=== PATIENT | male | born 2000 | race Two or more races ===

== ENCOUNTER 2022-08-14 07:28 | Inpatient (IN) | payer BC ==
[2022-08-14 07:51] VITALS: BMI 21.1
[2022-08-14] MEDS ORDERED: ACETAMINOPHEN 1000 MG/100 ML BAG IVPB ONE (08:46)
[2022-08-14] MEDS ORDERED: DIPHTH,PERTUSS(ACELL),TET 0.5 ML DISP.SYRIN IM ONE ×2 (08:47→08:50)
[2022-08-14] MEDS ORDERED: ACETAMINOPHEN INJECTION 100 ML IVPB ONE (08:50)
[2022-08-14 09:41] LABS: BASO % 0.2 % (0-2.0); EOS % 0.1 % (0-4.5); HEMATOCRIT 45.4 % (35.4-49); HEMOGLOBIN 15.3 GM/dL (11.7-16.9); LYMPH % 5.9 % (8-40); MCH 30.1 pg (25.7-33.7); MCHC 33.8 g/dl (32.0-35.9); MEAN CELL VOLUME 88.9 fl (80-96); MEAN PLT VOLUME 9.5 fl (7.5-11.1); NEUT % 90.8 % (42.8-82.8); PLATELET COUNT 327 10^3/uL (134-434); RDW 15.1 % (11.9-15.9); WHITE BLOOD COUNT 16.7 K/mm3 (4.0-10.0)
[2022-08-14 09:58] LABS: CHLORIDE 102 mmol/L (98-107); SODIUM 127 mmol/L (136-145)
[2022-08-14 09:59] LABS: CALCIUM 9.5 mg/dL (8.5-10.1)
[2022-08-14 10:00] LABS: ALBUMIN 4.2 g/dl (3.4-5.0); BLOOD UREA NITROGEN 16.6 mg/dL (7-18); CO2 25 mmol/L (21-32); GLUCOSE,RANDOM 80 mg/dL (74-106); MAGNESIUM 2.7 mg/dL (1.8-2.4)
[2022-08-14 10:03] LABS: CREATININE 0.9 mg/dL (0.55-1.3); PHOSPHOROUS 1.8 mg/dL (2.5-4.9)
[2022-08-14 10:04] LABS: TOT PROT 8.7 g/dl (6.4-8.2)
[2022-08-14 10:05] LABS: BILIRUBIN,TOTAL 0.6 mg/dL (0.2-1)
[2022-08-14 10:06] LABS: ALK PHOS 84 U/L (45-117)
[2022-08-14 10:29] LABS: ANION GAP 0 MMOL/L (8-16)
[2022-08-14 11:28] LABS: CALCIUM 9.8 mg/dL (8.5-10.1)
[2022-08-14 11:29] LABS: BLOOD UREA NITROGEN 16.4 mg/dL (7-18); MAGNESIUM 2.5 mg/dL (1.8-2.4)
[2022-08-14 11:32] LABS: CREATININE 0.9 mg/dL (0.55-1.3); PHOSPHOROUS 1.9 mg/dL (2.5-4.9)
[2022-08-14 13:31] LABS: ALBUMIN 4.6 g/dl (3.4-5.0)
[2022-08-14 13:34] LABS: BILIRUBIN,DIRECT 0.1 mg/dL (0.0-0.2)
[2022-08-14 13:36] LABS: BILIRUBIN,TOTAL 0.5 mg/dL (0.2-1)
[2022-08-14] MEDS ORDERED: LACTATED RINGERS SOLUTION 1,000 ML/1,000 ML INFUS.BAG IV SCH (15:30)
[2022-08-14] MEDS ORDERED: levETIRAcetam 500 MG TABLET (FP) PO ONE ×2 (16:54→17:13)
[2022-08-14] MEDS ORDERED: NAPH,MB-DB/K PH,MBDB POWDER PACKET PO ONE (17:07)
[2022-08-14 17:09] VITALS: TEMP 97.8
[2022-08-14] MEDS ORDERED: NAPH,MB-DB/K PH,MBDB POWDER PACKET ONE (17:13)
[2022-08-14 17:16] LABS: PH,URINE 5.5 (5.0-8.0); URINE APPEARANCE CLEAR; URINE BILIRUBIN NEGATIVE (NEGATIVE); URINE COLOR YELLOW; URINE GLUCOSE (UA) NEGATIVE (NEGATIVE); URINE KETONE 3+ (NEGATIVE); URINE LEUK ESTERASE NEGATIVE (NEGATIVE); URINE NITRITE NEGATIVE (NEGATIVE); URINE PROTEIN TRACE (NEGATIVE); URINE UROBILINOGEN 0.2 mg/dL (0.2-1.0)
[2022-08-14 18:12] LABS: PHENCYCLIDINE,URINE NEGATIVE (NEGATIVE)
[2022-08-14 18:13] LABS: COCAINE, UR NEGATIVE (NEGATIVE); URINE BENZODIAZEPINES NEGATIVE (NEGATIVE)
[2022-08-14 18:15] LABS: METHADONE, UR NEGATIVE (NEGATIVE); OPIATES, URI NEGATIVE (NEGATIVE); URINE AMPHETAMINES NEGATIVE (NEGATIVE); URINE BARBITURATES NEGATIVE (NEGATIVE)
[2022-08-14 21:02] VITALS: BP 123/74; PULSE 87; RESP 20
[2022-08-14] MEDS ORDERED: levETIRAcetam 500 MG TABLET (FP) PO SCH (22:00)
[2022-08-15] MEDS ORDERED: ENOXAPARIN NA (PORCINE) 40 MG/0.4 ML DISP.SYRIN SQ SCH (10:00)
== END 2022-08-14 21:57 | disposition home or self-care (01) | DRG 101 ==
LOC: JER 07:28 → JERBED 15:08
PROVIDERS: ADMIT Internal Medicine; ATTEND Internal Medicine
DX: R56.9 Unspecified convulsions (principal)
CPT/HCPCS: 0241U-QW; 36415; 70450-TC; 71046-TC-FY; 72125-TC; 80048; 80053; 80076; 80307; 81003; 82550; 82553; 83605; 83615; 83735; 84100; 84484; 85025; 87086; 90715; 93005; 93010; 99285-25